=== PATIENT | female | born 1940 | race Caucasian/White ===

== ENCOUNTER → 2016-08-30 | Outpatient (CLI) | payer MEDICARE, BC ==
[~2016-08-30] MED LIST: ALDACTONE 25MG25 M1 PO; AMITRIPTYLINE H50 M1 PO; ASPIRIN 81M81 MG/TA2 PO; ASPIRIN E.C. 8181 MG PO; CEFTIN 250250 MG/TAB PO; CELEXA10 MG PO; CLARITIN 1010 MG/TAB PO; CLEOCIN HCL300 MG PO; CORDARONE200 MG/TAB PO; COUMADIN 5MG5 MG/TAB PO; CYMBALTA 60MG60 MG PO; ELIQUIS 2.5 PO; IMODIUM 2MG CAPS2 MG PO; LASIX 20MG TABL20 MG PO; LASIX 40MG TABL40 MG PO; LEADER CLE17 GM/Dose PO; LOPRESSOR 225 MG/TAB PO; LOPRESSOR 550 MG/TAB PO; MIRALAX PA17 GM/Dose PO; MUCUSRELF400T PO; MULTAQ400 MG PO; NORCO 325 MG-51 TAB PO; NORVASC 5MG5 MG/TAB PO; NYSTATIN POWDER15 GM TOP; NYSTATIN1 POW; PRINZIDE 12.5 M1 TA1 PO; SENOKOT S 50 MG1 TAB PO; SEROQUEL 2525 MG/TAB PO; TOPROL XL 25MG25 MG PO; TYLENOL 325MG325 MG PO; ULTRAM 50MG TAB50 MG PO; ZOLOFT 25MG25 MG PO
[2016-08-30 14:39] LABS: HEMATOCRIT 42.8 % (37.0-47.0); HEMOGLOBIN 14.1 g/dl (12.5-16.0); MEAN CELL VOLUME 93 fl (80.0-100.0); MEAN CORPUSCULAR HEMOGLOBIN 31 pg (27.0-31.0); MEAN CORPUSCULAR HGB CONC 33 g/dl (33.0-37.0); MEAN PLATELET VOLUME 12.8 fl (7.4-10.4); PLATELET COUNT 190 K/mm3 (130-400); RED BLOOD COUNT 4.58 M/mm3 (4.10-5.30); REDCELL DISTRIBUTION WIDTH-CV 14.2 % (11.5-14.5)
[2016-08-30 14:43] LABS: ADJUSTED CALCIUM 9.5 mg/dL (8.4-10.2); BILIRUBIN,TOTAL 0.6 mg/dL (0.0-1.0); CALCIUM 8.7 mg/dL (8.4-10.2); CREATININE, serum 0.75 mg/dL (0.52-1.25); POTASSIUM 4.2 mmol/L (3.4-5.0); TOTAL PROTEIN 5.4 gm/dL (6.4-8.2)
[2016-08-30 15:14] LABS: THYROID STIMULATING HORMONE 2.57 uIU/mL (0.465-4.680)
== END ==
LOC: ZLAB.STJ 12:41
PROVIDERS: Internal Medicine
DX: R94.6 Abnormal results of thyroid function studies (principal); R73.09 Other abnormal glucose; Z02.89 Encounter for other administrative examinations

== ENCOUNTER 2017-05-28 09:50 | Inpatient (IN) | payer MEDICARE, BC ==
[~2017-05-28] VITALS: Ht 162.6 cm; Wt 80.6 kg
[~2017-05-28 09:50] MED LIST changes: +CYMBALTA 30MG30 MG PO; +NORVASC 10MG10 MG PO; -NORVASC 5MG5 MG/TAB PO
[2017-05-28 10:32] LABS: HEMATOCRIT 41.9 % (37.0-47.0); HEMOGLOBIN 14.4 g/dl (12.5-16.0); MEAN CELL VOLUME 88 fl (80.0-100.0); MEAN CORPUSCULAR HEMOGLOBIN 30 pg (27.0-31.0); MEAN CORPUSCULAR HGB CONC 34 g/dl (33.0-37.0); MEAN PLATELET VOLUME 13.1 fl (7.4-10.4); PLATELET COUNT 239 K/mm3 (130-400); RED BLOOD COUNT 4.78 M/mm3 (4.10-5.30); REDCELL DISTRIBUTION WIDTH-CV 13.9 % (11.5-14.5)
[2017-05-28 10:45] LABS: BILIRUBIN,TOTAL 1.4 mg/dL (0.0-1.0); C-REACTIVE PROTEIN 5.1 mg/dL (0.0-0.9); CALCIUM 8.4 mg/dL (8.4-10.2); CREATININE, serum 0.67 mg/dL (0.52-1.25)
[2017-05-28 10:48] LABS: INFLUENZA A NEGATIVE; INFLUENZA B NEGATIVE
[2017-05-28 10:50] LABS: POTASSIUM 2.2 mmol/L (3.4-5.0)
[2017-05-28 10:51] LABS: BAND 7 % (0-10); LYMPHOCYTE 6 % (20.0-51.0); NEUTROPHILS 74 % (42.0-75.2); PLATELET ESTIMATE NORMAL (NORMAL)
[2017-05-28 10:55] LABS: TROPONIN-I 0.042 ng/mL (0.000-0.034)
[2017-05-28 11:09] LABS: COLLECTION METHOD CATHETER
[2017-05-28 11:19] LABS: MUCOUS Present /lpf; PH 5 (5-8); SQUAMOUS EPITHELIAL 0-2 /hpf; URINE APPEARANCE Cloudy; URINE BACTERIA Rare /hpf; URINE BILIRUBIN Negative (NEGATIVE); URINE BLOOD Negative (NEGATIVE); URINE COLOR Amber; URINE GLUCOSE Negative (NEGATIVE); URINE KETONE Trace (NEGATIVE); URINE LEUKOCYTE ESTERASE 2+ (NEGATIVE); URINE NITRATE Positive (NEGATIVE); URINE PROTEIN(semi-quant) Negative (NEGATIVE)
[2017-05-28] MEDS ORDERED: TAMIFLU 75MG75 MG PO (13:08)
[2017-05-28 13:18] VITALS: BP 117/73; PULSE 61; TEMP 98.2
[2017-05-28 15:02] VITALS: BP 126/66; PULSE 70; TEMP 98
[2017-05-28 18:10] VITALS: BP 119/54; PULSE 60; TEMP 98
[2017-05-28 21:07] VITALS: BP 133/58; PULSE 59; TEMP 96.9
[2017-05-29 01:17] VITALS: BP 151/95; PULSE 61; TEMP 97.6
[2017-05-29 04:26] VITALS: BP 116/85; PULSE 84; TEMP 97.7
[2017-05-29 06:54] LABS: BASO # 0.1 (0.0-0.2); BASO % 0.7 % (0.0-2.0); EOS # 0.3 (0.0-0.7); EOS % 3.3 % (0-4.0); GRAN % 66.2 % (42.2-75.2); HEMATOCRIT 41.2 % (37.0-47.0); HEMOGLOBIN 13.8 g/dl (12.5-16.0); LYMPH # 1.5 (1.2-3.4); LYMPH % 16.2 % (20.0-51.0); MEAN CELL VOLUME 89 fl (80.0-100.0); MEAN CORPUSCULAR HEMOGLOBIN 30 pg (27.0-31.0); MEAN CORPUSCULAR HGB CONC 34 g/dl (33.0-37.0); MEAN PLATELET VOLUME 13.1 fl (7.4-10.4); MONO # 1.1 (0.1-0.6); MONO % 12.5 % (1.7-9.3); PLATELET COUNT 239 K/mm3 (130-400); RED BLOOD COUNT 4.63 M/mm3 (4.10-5.30); REDCELL DISTRIBUTION WIDTH-CV 14.3 % (11.5-14.5)
[2017-05-29 07:04] LABS: ANION GAP 10 mmol/L (7-16); BLOOD UREA NITROGEN 11 mg/dL (7-17); CALCIUM 8.4 mg/dL (8.4-10.2); CARBON DIOXIDE 21 mmol/L (22-30); CHLORIDE 115 mmol/L (98-107); CREATININE, serum 0.56 mg/dL (0.52-1.25); GLUCOSE 83 mg/dL (74-106); POTASSIUM 3.1 mmol/L (3.4-5.0); SODIUM 146 mmol/L (137-145)
[2017-05-29 07:14] LABS: TROPONIN-I < 0.012 ng/mL (0.000-0.034)
[2017-05-29 09:55] VITALS: BP 123/67; PULSE 59; TEMP 97
[2017-05-29 13:38] VITALS: BP 110/67; PULSE 59; TEMP 97.7
[2017-05-29 17:24] VITALS: BP 127/61; PULSE 59; TEMP 97.9
[2017-05-29 22:02] VITALS: BP 124/83; PULSE 60; TEMP 98.2
[2017-05-30 02:00] VITALS: BP 135/68; PULSE 54; TEMP 98.6
[2017-05-30 05:32] VITALS: BP 116/77; PULSE 59; TEMP 97.5
[2017-05-30 06:46] LABS: BASO # 0.1 (0.0-0.2); BASO % 0.8 % (0.0-2.0); EOS # 0.5 (0.0-0.7); GRAN # 4.4 (1.4-6.5); GRAN % 56.6 % (42.2-75.2); HEMATOCRIT 40.3 % (37.0-47.0); HEMOGLOBIN 13.4 g/dl (12.5-16.0); LYMPH # 1.6 (1.2-3.4); LYMPH % 20.4 % (20.0-51.0); MEAN CELL VOLUME 90 fl (80.0-100.0); MEAN CORPUSCULAR HEMOGLOBIN 30 pg (27.0-31.0); MEAN CORPUSCULAR HGB CONC 33 g/dl (33.0-37.0); MEAN PLATELET VOLUME 13.1 fl (7.4-10.4); MONO # 1.1 (0.1-0.6); MONO % 13.9 % (1.7-9.3); PLATELET COUNT 256 K/mm3 (130-400); RED BLOOD COUNT 4.47 M/mm3 (4.10-5.30); REDCELL DISTRIBUTION WIDTH-CV 14.6 % (11.5-14.5)
[2017-05-30 07:10] LABS: CALCIUM 8.3 mg/dL (8.4-10.2); CREATININE, serum 0.57 mg/dL (0.52-1.25); MAGNESIUM 1.4 mg/dL (1.6-2.3); POTASSIUM 4.2 mmol/L (3.4-5.0)
[2017-05-30 10:25] VITALS: BP 134/57; PULSE 60; TEMP 98.7
[2017-05-30 13:35] VITALS: BP 143/78; PULSE 59; TEMP 98.6
[2017-05-30 18:18] VITALS: BP 130/67; PULSE 56; TEMP 98.2
[2017-05-30 20:52] VITALS: BP 135/65; PULSE 119; TEMP 98
[2017-05-31 00:18] VITALS: BP 137/68; PULSE 60; TEMP 97
[2017-05-31 04:47] VITALS: BP 134/70; PULSE 57; TEMP 98.1
[2017-05-31 06:59] LABS: BASO # 0.1 (0.0-0.2); BASO % 1.3 % (0.0-2.0); EOS # 0.5 (0.0-0.7); EOS % 8.9 % (0-4.0); GRAN # 3.3 (1.4-6.5); GRAN % 55.1 % (42.2-75.2); HEMATOCRIT 40.3 % (37.0-47.0); HEMOGLOBIN 13.6 g/dl (12.5-16.0); LYMPH # 1.2 (1.2-3.4); LYMPH % 20.3 % (20.0-51.0); MEAN CELL VOLUME 91 fl (80.0-100.0); MEAN CORPUSCULAR HEMOGLOBIN 31 pg (27.0-31.0); MEAN CORPUSCULAR HGB CONC 34 g/dl (33.0-37.0); MEAN PLATELET VOLUME 12.8 fl (7.4-10.4); MONO # 0.8 (0.1-0.6); MONO % 13.4 % (1.7-9.3); PLATELET COUNT 279 K/mm3 (130-400); RED BLOOD COUNT 4.44 M/mm3 (4.10-5.30); REDCELL DISTRIBUTION WIDTH-CV 14.6 % (11.5-14.5)
[2017-05-31 07:13] LABS: CALCIUM 8.3 mg/dL (8.4-10.2); CREATININE, serum 0.62 mg/dL (0.52-1.25); MAGNESIUM 2.5 mg/dL (1.6-2.3); POTASSIUM 5.1 mmol/L (3.4-5.0)
[2017-05-31] MEDS ORDERED: NYAMYC100000 U/G TOP (07:26)
[2017-05-31] MEDS ORDERED: ZITHROMAX 250M250 MG PO (09:03)
[2017-05-31] MEDS ORDERED: PROAIR HFA0.09 MG/AC IH (09:06)
[2017-05-31 09:44] VITALS: BP 119/91; PULSE 60; TEMP 98.5
[2017-05-31 11:46] VITALS: BP 119/91; PULSE 60; TEMP 98.5
== END 2017-05-31 14:20 | DRG 689 ==
LOC: COL.ER 09:50 → SURG 11:53
PROVIDERS: Emergency Medicine; Family Medicine
DX: N39.0 Urinary tract infection, site not specified (principal); J18.9 Pneumonia, unspecified organism; J98.11 Atelectasis; B96.20 Unspecified Escherichia coli [E. coli] as the cause of diseases classified elsewhere; I10 Essential (primary) hypertension; E87.6 Hypokalemia; E86.0 Dehydration; I25.10 Atherosclerotic heart disease of native coronary artery without angina pectoris; I48.91 Unspecified atrial fibrillation; M79.7 Fibromyalgia; Z95.0 Presence of cardiac pacemaker; F03.90 Unspecified dementia, unspecified severity, without behavioral disturbance, psychotic disturbance, mood disturbance, and anxiety; M34.9 Systemic sclerosis, unspecified; E83.42 Hypomagnesemia
CPT/HCPCS: 99222-AI; 99232-AI; 99239; J0692; J1650; J1956; J3475; J3480; J7030

== ENCOUNTER → 2017-06-05 | Outpatient (CLI) | payer MEDICARE, BC ==
[~2017-06-05] MED LIST changes: +NYAMYC100000 U/G TOP; +PROAIR HFA0.09 MG/AC IH; +TAMIFLU 75MG75 MG PO; +ZITHROMAX 250M250 MG PO
[2017-06-05 15:10] LABS: CALCIUM 8.6 mg/dL (8.4-10.2); CREATININE, serum 0.64 mg/dL (0.52-1.25); POTASSIUM 3.9 mmol/L (3.4-5.0)
== END ==
LOC: ZLAB.STJ 14:44
PROVIDERS: Internal Medicine
DX: E87.6 Hypokalemia (principal)

== ENCOUNTER 2018-03-09 08:18 | Inpatient (IN) | payer MEDICARE, BC ==
[~2018-03-09] VITALS: Ht 160 cm; Wt 78.4 kg
[2018-03-09] VITALS (489 sets, daily range): BP systolic 106–118; BP diastolic 57–65; PULSE 60; TEMP 97–99.1; O2SAT 30–100
[2018-03-09 08:47] LABS: COLLECTION METHOD CATHETER
[2018-03-09 08:55] LABS: BASO # 0.1 (0.0-0.2); BASO % 0.4 % (0.0-2.0); GRAN # 18.2 (1.4-6.5); GRAN % 89.8 % (42.2-75.2); HEMATOCRIT 39.9 % (37.0-47.0); LYMPH # 0.6 (1.2-3.4); LYMPH % 3.1 % (20.0-51.0); MEAN CELL VOLUME 96 fl (80.0-100.0); MEAN CORPUSCULAR HEMOGLOBIN 31 pg (27.0-31.0); MEAN CORPUSCULAR HGB CONC 33 g/dl (33.0-37.0); MEAN PLATELET VOLUME 11.8 fl (7.4-10.4); MONO # 1.2 (0.1-0.6); PLATELET COUNT 187 K/mm3 (130-400); RED BLOOD COUNT 4.16 M/mm3 (4.10-5.30); REDCELL DISTRIBUTION WIDTH-CV 14.3 % (11.5-14.5)
[2018-03-09 08:57] LABS: MUCOUS Present /lpf; PH 5 (5-8); URINE APPEARANCE Hazy; URINE BACTERIA Rare /hpf; URINE BILIRUBIN Negative (NEGATIVE); URINE BLOOD Negative (NEGATIVE); URINE COLOR Amber; URINE GLUCOSE Negative (NEGATIVE); URINE KETONE Negative (NEGATIVE); URINE LEUKOCYTE ESTERASE Negative (NEGATIVE); URINE NITRATE Negative (NEGATIVE); URINE PROTEIN(semi-quant) Negative (NEGATIVE); URINE UROBILINOGEN >=4.0 mg/dL (NEGATIVE)
[2018-03-09 09:04] LABS: ALBUMIN 2.7 gm/dL (3.5-5.0); BILIRUBIN,TOTAL 2.1 mg/dL (0.0-1.0); CREATININE, serum 0.79 mg/dL (0.52-1.25); POTASSIUM 3.7 mmol/L (3.4-5.0); TOTAL PROTEIN 5.5 gm/dL (6.4-8.2)
[2018-03-10] VITALS (558 sets, daily range): BP systolic 105–155; BP diastolic 49–94; PULSE 60–104; TEMP 97.8–98.9; O2SAT 40–100
[2018-03-10 05:37] LABS: BASO # 0.1 (0.0-0.2); BASO % 0.7 % (0.0-2.0); EOS % 0.3 % (0-4.0); GRAN # 12.1 (1.4-6.5); HEMATOCRIT 37.7 % (37.0-47.0); HEMOGLOBIN 12.5 g/dl (12.5-16.0); LYMPH # 0.8 (1.2-3.4); LYMPH % 5.9 % (20.0-51.0); MEAN CELL VOLUME 94 fl (80.0-100.0); MEAN CORPUSCULAR HEMOGLOBIN 31 pg (27.0-31.0); MEAN CORPUSCULAR HGB CONC 33 g/dl (33.0-37.0); MEAN PLATELET VOLUME 11.8 fl (7.4-10.4); MONO % 7.3 % (1.7-9.3); PLATELET COUNT 157 K/mm3 (130-400); RED BLOOD COUNT 4.01 M/mm3 (4.10-5.30); REDCELL DISTRIBUTION WIDTH-CV 14.2 % (11.5-14.5)
[2018-03-10 05:48] LABS: ALBUMIN 2.4 gm/dL (3.5-5.0); BILIRUBIN,TOTAL 2.2 mg/dL (0.0-1.0); CALCIUM 7.5 mg/dL (8.4-10.2); CREATININE, serum 0.51 mg/dL (0.52-1.25); TOTAL PROTEIN 5.2 gm/dL (6.4-8.2)
[2018-03-10 08:15] LABS: INR 1.7 (0.8-3.0); PROTHROMBIN TIME 19.6 SECONDS (9.7-12.8)
[2018-03-11 04:05] VITALS: BP 121/45; PULSE 65
[2018-03-11 05:56] LABS: BASO # 0.1 (0.0-0.2); BASO % 0.8 % (0.0-2.0); EOS # 0.3 (0.0-0.7); EOS % 2.4 % (0-4.0); GRAN # 8.4 (1.4-6.5); GRAN % 78.9 % (42.2-75.2); HEMOGLOBIN 11.8 g/dl (12.5-16.0); LYMPH # 0.9 (1.2-3.4); LYMPH % 8.5 % (20.0-51.0); MEAN CELL VOLUME 92 fl (80.0-100.0); MEAN CORPUSCULAR HEMOGLOBIN 31 pg (27.0-31.0); MEAN CORPUSCULAR HGB CONC 34 g/dl (33.0-37.0); MEAN PLATELET VOLUME 12.5 fl (7.4-10.4); MONO # 0.9 (0.1-0.6); MONO % 8.8 % (1.7-9.3); PLATELET COUNT 181 K/mm3 (130-400); RED BLOOD COUNT 3.78 M/mm3 (4.10-5.30); REDCELL DISTRIBUTION WIDTH-CV 14.1 % (11.5-14.5)
[2018-03-11 06:05] LABS: ALBUMIN 2.5 gm/dL (3.5-5.0); BILIRUBIN,TOTAL 1.8 mg/dL (0.0-1.0); CALCIUM 7.9 mg/dL (8.4-10.2); CREATININE, serum 0.54 mg/dL (0.52-1.25); POTASSIUM 3.5 mmol/L (3.4-5.0); TOTAL PROTEIN 5.3 gm/dL (6.4-8.2)
[2018-03-11 06:24] LABS: HEMATOCRIT 34.8 % (37.0-47.0)
[2018-03-11 07:25] VITALS: BP 131/83; PULSE 71; TEMP 97.3
[2018-03-11 11:20] VITALS: BP 128/52; PULSE 69; TEMP 99
[2018-03-11 15:42] VITALS: BP 127/52; PULSE 83; TEMP 98.4
[2018-03-11 20:03] VITALS: BP 124/71; PULSE 87; TEMP 98.7
[2018-03-12 00:20] VITALS: BP 137/53; PULSE 77; TEMP 97.9
[2018-03-12 04:11] VITALS: BP 134/59; PULSE 72
[2018-03-12 05:40] LABS: BASO # 0.1 (0.0-0.2); BASO % 0.9 % (0.0-2.0); EOS # 0.4 (0.0-0.7); EOS % 3.4 % (0-4.0); GRAN # 7.7 (1.4-6.5); GRAN % 72.5 % (42.2-75.2); HEMOGLOBIN 11.2 g/dl (12.5-16.0); LYMPH # 1.2 (1.2-3.4); LYMPH % 11.7 % (20.0-51.0); MEAN CELL VOLUME 92 fl (80.0-100.0); MEAN CORPUSCULAR HEMOGLOBIN 31 pg (27.0-31.0); MEAN CORPUSCULAR HGB CONC 33 g/dl (33.0-37.0); MEAN PLATELET VOLUME 12.6 fl (7.4-10.4); MONO # 1.1 (0.1-0.6); MONO % 10.6 % (1.7-9.3); PLATELET COUNT 187 K/mm3 (130-400); RED BLOOD COUNT 3.63 M/mm3 (4.10-5.30); REDCELL DISTRIBUTION WIDTH-CV 14.1 % (11.5-14.5)
[2018-03-12 05:47] LABS: HEMATOCRIT 33.5 % (37.0-47.0)
[2018-03-12 06:04] LABS: ALBUMIN 2.4 gm/dL (3.5-5.0); BILIRUBIN,TOTAL 1.5 mg/dL (0.0-1.0); CALCIUM 7.6 mg/dL (8.4-10.2); CREATININE, serum 0.52 mg/dL (0.52-1.25); MAGNESIUM 2.3 mg/dL (1.6-2.3); POTASSIUM 3.4 mmol/L (3.4-5.0); TOTAL PROTEIN 5.2 gm/dL (6.4-8.2)
[2018-03-12 08:18] VITALS: BP 124/71; PULSE 63; TEMP 97.4
[2018-03-12 11:19] VITALS: BP 107/68; PULSE 58; TEMP 98
[2018-03-12 22:21] VITALS: BP 104/73; PULSE 107; TEMP 99.2
[2018-03-13] VITALS (7 sets, daily range): BP systolic 122–140; BP diastolic 47–97; PULSE 68–90; TEMP 97.6–98.6
[2018-03-13 06:18] LABS: BASO # 0.1 (0.0-0.2); BASO % 0.9 % (0.0-2.0); EOS # 0.5 (0.0-0.7); GRAN % 69.9 % (42.2-75.2); HEMOGLOBIN 11.2 g/dl (12.5-16.0); LYMPH # 1.6 (1.2-3.4); LYMPH % 12.4 % (20.0-51.0); MEAN CELL VOLUME 92 fl (80.0-100.0); MEAN CORPUSCULAR HEMOGLOBIN 31 pg (27.0-31.0); MEAN CORPUSCULAR HGB CONC 34 g/dl (33.0-37.0); MONO # 1.5 (0.1-0.6); MONO % 11.6 % (1.7-9.3); PLATELET COUNT 206 K/mm3 (130-400)
[2018-03-13 06:29] LABS: ALBUMIN 2.5 gm/dL (3.5-5.0); CALCIUM 7.7 mg/dL (8.4-10.2); CREATININE, serum 0.51 mg/dL (0.52-1.25); POTASSIUM 3.8 mmol/L (3.4-5.0); TOTAL PROTEIN 5.1 gm/dL (6.4-8.2)
[2018-03-14] VITALS (145 sets, daily range): BP systolic 146; BP diastolic 65; PULSE 72–77; TEMP 99.2–99.6; O2SAT 83–96
[2018-03-15] MEDS ORDERED: TRANSDERM-0.5 MG/21 TD (09:31)
[2018-03-15] MEDS ORDERED: ROXANOL 20MG20 MG/ML SL (09:32)
[2018-03-15] MEDS ORDERED: ATIVAN 1MG T1 MG/TAB PO (10:10)
[2018-03-15 14:30] VITALS: BP 146/65; PULSE 77; TEMP 99.6
== END 2018-03-15 15:39 | disposition hospice, home (50) | DRG 871 ==
LOC: COL.ER 08:18 → ICU 09:47 → MEDICAL 03-10 12:28 → ICU 03-14 10:22 → MEDICAL 03-14 13:17
PROVIDERS: Emergency Medicine; Family Medicine; Hospitalist; Physician Assistant
DX: A41.81 Sepsis due to Enterococcus (principal); G93.41 Metabolic encephalopathy; K72.00 Acute and subacute hepatic failure without coma; N39.0 Urinary tract infection, site not specified; J90 Pleural effusion, not elsewhere classified; Z66 Do not resuscitate; Z51.5 Encounter for palliative care; B96.20 Unspecified Escherichia coli [E. coli] as the cause of diseases classified elsewhere; R65.20 Severe sepsis without septic shock; Z23 Encounter for immunization; F03.90 Unspecified dementia, unspecified severity, without behavioral disturbance, psychotic disturbance, mood disturbance, and anxiety; I10 Essential (primary) hypertension; M34.9 Systemic sclerosis, unspecified; I48.91 Unspecified atrial fibrillation; Z95.0 Presence of cardiac pacemaker; M79.7 Fibromyalgia; Z85.3 Personal history of malignant neoplasm of breast; I27.22 Pulmonary hypertension due to left heart disease; I08.3 Combined rheumatic disorders of mitral, aortic and tricuspid valves; D64.9 Anemia, unspecified; G89.29 Other chronic pain; K74.60 Unspecified cirrhosis of liver; R06.03 Acute respiratory distress
CPT/HCPCS: 99222-AI; 99233-AI; 99239; A4216; J0692; J0696; J1650; J1940; J2060; J2270; J3370; J3475; J3480; J7030; J7050; Q9967